=== PATIENT | female | born 1990 | race Caucasian/White ===

== ENCOUNTER 2021-09-18 11:12 | Emergency (ER) | payer OTHER ==
[2021-09-18] MEDS ORDERED: IBUPROFEN800 MG PO (15:21)
== END 2021-09-18 15:46 | disposition home or self-care (01) ==
LOC: FER 11:12
DX: S32.039A Unspecified fracture of third lumbar vertebra, initial encounter for closed fracture (principal); Z28.310 Unvaccinated for COVID-19; V49.40XA Driver injured in collision with unspecified motor vehicles in traffic accident, initial encounter
CPT/HCPCS: 70450; 72125; 72131; 73130; 73620